=== PATIENT | female | born 1995 | race Caucasian/White ===

== ENCOUNTER 2017-05-18 02:37 | Emergency (ER) | payer OTHER ==
[~2017-05-18] VITALS: Ht 157.5 cm; Wt 72.6 kg
--- NOTE | 2017-05-18 03:16 | PHYS DOC ---
Adult General Chief Complaint Chief Complaint: RECTAL BLEED HPI HPI 21-year-old female no sig past history now concerned about possible blood in her stool. Patient is currently having her period. She is also constipated. This evening she think she noticed some blood in her stool but is not sure if it could've come from her vagina. No diarrhea. No history of chronic abdominal problems. No coagulopathy or anticoagulants. No prior rectal bleeding. Review of Systems Review of Systems Constitutional: Denies fever or chills [] Eyes: Denies change in visual acuity, redness, or eye pain [] HENT: Denies nasal congestion or sore throat [] Respiratory: Denies cough or shortness of breath [] Cardiovascular: No additional information not addressed in HPI [] GI: Denies abdominal pain, nausea, vomiting, bloody stools or diarrhea [] : Denies dysuria or hematuria [] Musculoskeletal: Denies back pain or joint pain [] Integument: Denies rash or skin lesions [] Neurologic: Denies headache, focal weakness or sensory changes [] Endocrine: Denies polyuria or polydipsia [] All other systems were reviewed and found to be within normal limits, except as documented in this note. Physical Exam Physical Exam Well-appearing patient no subconjunctival pallor. Constitutional: Well developed, well nourished, no acute distress, non-toxic appearance. [] HENT: Normocephalic, atraumatic, bilateral external ears normal, oropharynx moist, no oral exudates, nose normal. [] Eyes: PERRLA, EOMI, conjunctiva normal, no discharge. [] Neck: Normal range of motion, no tenderness, supple, no stridor. [] Cardiovascular: No tachycardia Lungs & Thorax: Normal respiratory rate and bilateral chest wall excursion with no increased work of breathing Abdomen: Nondistended abdomen Skin: Warm, dry, no erythema, no rash. [] Back: Extremities: No tenderness, no cyanosis, no clubbing, ROM intact, no edema. [] Neurologic: Alert and oriented X 3, normal motor function, normal sensory function, no focal deficits noted. [] Psychologic: Affect normal, judgement normal, mood normal. [] EKG EKG [] Radiology/Procedures Radiology/Procedures [] Course & Med Decision Making Course & Med Decision Making Pertinent Labs and Imaging studies reviewed. (See chart for details) Signs and symptoms consistent with menstrual bleeding versus possible mild rectal bleeding secondary to constipation versus rectal bleeding from other etiology. Patient with no pallor and unremarkable vital signs. She is well- appearing with no history of coagulopathy or anticoagulants. Patient does not want to get a digital rectal exam. She has no active bleeding in the emergency department since arrival. Bleeding at home was mild and transient. No syncope or near syncope. Patient described no orthostatic symptoms. Hemoglobin pending. Patient will follow-up with her primary care doctor for reevaluation, rectal exam if she elects to do this, and to arrange further workup and treatment included colonoscopy as needed. Patient and mom agree with outpatient follow-up and strict return precautions will be given Dragon Disclaimer Dragon Disclaimer This electronic medical record was generated, in whole or in part, using a voice recognition dictation system. Departure Departure: Impression: Primary Impression: Rectal bleeding Disposition: HOME, SELF-CARE Condition: IMPROVED Referrals: SANDRA HAYS MD (PCP) Patient Instructions: Rectal Bleeding Additional Instructions: As you described, it is unclear whether the bleeding you've experienced was from your menstrual cycle or rectal bleeding. It is not uncommon to have small amount of rectal bleeding associated with constipation. You've elected to not have a rectal exam this evening so it's impossible for us to tell if you have any visible blood or microscopic blood associated with your stool. Your hemoglobin result was unremarkable. Follow-up with your doctor in 1-2 days for reevaluation and further workup and treatment as needed. Return immediately for new severe worsening symptoms specifically for severe bleeding especially in the setting of lightheadedness or fainting. CHERISE RUST MD May 18, 2017 03:16
[2017-05-18 03:57] VITALS: BP 109/57
== END 2017-05-18 03:57 | disposition home or self-care (01) ==
LOC: ER 02:37
DX: K62.5 Hemorrhage of anus and rectum (principal); K59.00 Constipation, unspecified
CPT/HCPCS: 36415; 85018; 99283